=== PATIENT | female | born 1955 | race Caucasian/White ===

== ENCOUNTER 2017-02-20 07:38 | Day surgery (SDC) | payer OTHER ==
[~2017-02-20 07:38] MED LIST: Lactated Ringers 1,000 ML IV SCH; Lidocaine 2% 5 ML SDV ONE; Midazolam 1 MG/ML 2 ML SDV ONE; Propofol 200 MG/20 ML SDV ONE; Sodium Chloride 0.9% 10 ML Syringe FLUSH PRN; Sodium Chloride 0.9% 2.5 ML Syringe FLUSH PRN; fentaNYL 100 MCG/2 ML SDV ONE
[2017-02-20] MEDS ORDERED: ceFAZolin 1 GM Vial ONE (08:01)
[2017-02-20] MEDS ORDERED: Sodium Chloride 0.9% 0 ML ONE (08:01)
--- NOTE | 2017-02-20 08:42 | PCM.PREANE ---
Preanesthetic Assessment - Anesthesia/Transfusion/Family Hx Anesthesia History: Prior Anesthesia Without Reaction Family History of Anesthesia Reaction: No Transfusion History: No Prior Transfusion(s) - Review of Systems General: No Symptoms Pulmonary: No Symptoms Cardiovascular: No Symptoms Gastrointestinal: No symptoms Neurological: No Symptoms Other: Reports: None - Physical Assessment NPO Status Date: 02/19/17 O2 Sat by Pulse Oximetry: 97 Respiratory Rate: 16 Vital Signs: Last Vital Signs Temp 36.3 C 02/20/17 07:53 Pulse 69 02/20/17 07:53 Resp 16 02/20/17 07:53 BP 136/57 L 02/20/17 07:53 Pulse Ox 97 02/20/17 07:53 Height: 1.68 m Weight: 61.235 kg ASA Class: 1 Mental Status: Alert & Oriented x3 Airway Class: Mallampati = 1 Dentition: Reports: Normal Dentition ROM/Head Extension: Full Lungs: Clear to auscultation, Normal respiratory effort Cardiovascular: Regular Rate - Allergies Allergies/Adverse Reactions: Allergies Allergy/AdvReac Type Severity Reaction Status Date / Time No Known Allergies Allergy Verified 02/17/17 14:29 - Anesthesia Plan Pre-Op Medication Ordered: None - Acknowledgements Anesthesia Type Planned: MAC Pt an Appropriate Candidate for the Planned Anesthesia: Yes Alternatives and Risks of Anesthesia Discussed w Pt/Guardian: Yes Pt/Guardian Understands and Agrees with Anesthesia Plan: Yes PreAnesthesia Questionnaire HEENT History: Reports: Other (see below) Other HEENT History: wears contacts Genitourinary History: Reports: None [employer] History: Oncologic (Cancer) History: Reports: Breast - Past Surgical History Head Surgeries/Procedures: Reports: None GI Surgical History: Reports: Hernia, inguinal, Other (see below) Other GI Surgeries/Procedures: hx of pancreatic surgery for excision of benign tumors , hx inguinal hernia repair Female Surgical History: Reports: Breast biopsy, Other (see below) Other Female Surgeries/Procedures: breast lumpectomy for breast cancer - SUBSTANCE USE Smoking Status *Q: Current Every Day Smoker Tobacco Use Within Last Twelve Months: Cigarettes Recreational Drug Use History: No - HOME MEDS Home Medications: Home Meds . [No Known Home Meds] 02/17/17 [History] - CURRENT (IN HOUSE) MEDS Current Meds: Current Medications Lactated Ringer's (Ringers, Lactated) 1,000 mls @ 125 mls/hr IV ASDIRECTED ALEX Last Admin: 02/20/17 07:54 Dose: 125 mls/hr Sodium Chloride (Saline Flush) 10 ml FLUSH ASDIRECTED PRN PRN Reason: Keep Vein Open Sodium Chloride (Saline Flush) 2.5 ml FLUSH ASDIRECTED PRN PRN Reason: Keep Vein Open Discontinued Medications Cefazolin Sodium (Ancef) Confirm Administered Dose 2 gm .ROUTE .STK-MED ONE Stop: 02/20/17 08:02 Fentanyl (Sublimaze) Confirm Administered Dose 100 mcg .ROUTE .STK-MED ONE Stop: 02/20/17 07:08 Sodium Chloride (Normal Saline) Confirm Administered Dose 20 mls @ as directed .ROUTE .STK-MED ONE Stop: 02/20/17 08:02 Lidocaine (Xylocaine-Mpf 2%) Confirm Administered Dose 5 ml .ROUTE .STK-MED ONE Stop: 02/20/17 07:08 Midazolam HCl (Versed 1 Mg/Ml) Confirm Administered Dose 2 mg .ROUTE .STK-MED ONE Stop: 02/20/17 07:08 Propofol (Diprivan 20 Ml) Confirm Administered Dose 400 mg .ROUTE .STK-MED ONE Stop: 02/20/17 07:08
[2017-02-20] MEDS ORDERED: Glycopyrrolate 0.2 MG/ML SDV ONE (08:46)
[2017-02-20] MEDS ORDERED: Propofol 200 MG/20 ML SDV ONE (09:03)
--- NOTE | 2017-02-20 09:45 | PCM48HPAN ---
Post Anesthesia Note - EVALUATION WITHIN 48HRS OF ANESTHETIC Vital Signs in Normal Range: Yes Patient Participated in Evaluation: Yes Respiratory Function Stable: Yes Airway Patent: Yes Cardiovascular Function Stable: Yes Hydration Status Stable: Yes Pain Control Satisfactory: Yes Nausea and Vomiting Control Satisfactory: Yes Mental Status Recovered: Yes
--- NOTE | 2017-02-20 09:45 | PCM.POSTAN ---
POST ANESTHESIA ASSESSMENT - MENTAL STATUS Mental Status: alert, oriented - RESPIRATORY Respiratory Status: respiratory rate WNL, airway patent - CARDIOVASCULAR CV Status: pulse rate WNL, blood pressure stable - GASTROINTESTINAL GI Status: no symptoms - POST OP HYDRATION Hydration Status: adequate & stable
--- NOTE | 2017-02-20 09:46 | PCM.OPNOTE ---
- General Post-Op/Procedure Note Date of Surgery/Procedure: 02/20/17 Operative Procedure(s): Screening colonoscopy Findings: 1mm sessile polyp in sigmoid colon Pre Op Diagnosis: Colonoscopy Post-Op Diagnosis: same Anesthesia Technique: MAC Primary Surgeon: Lulu Krause Condition: Good Free Text/Narrative:: Intake & Output 02/19/17 02/20/17 02/20/17 22:59 06:59 14:59 Intake Total 1000 Balance 1000
[2017-02-20 10:03] VITALS: BP 112/63
--- NOTE | 2017-02-20 11:44 | OR ---
SURGEON: VIMAL SNOW MD DATE OF PROCEDURE: 02/20/2017 PREOPERATIVE DIAGNOSIS: Screening colonoscopy. POSTOPERATIVE DIAGNOSIS: Sigmoid colon polyp. PROCEDURE PERFORMED: Screening colonoscopy. INSTRUMENT USED: Olympus colonoscope. ANESTHESIA: MAC. EXTENT OF EXAM: To the cecum. PREPARATION: Good. LIMITATIONS: None. INDICATIONS: The patient is a 61-year-old female, who presents for screening colonoscopy. The patient and I discussed the procedure as well as expected perioperative course. We discussed the risks, including bleeding, infection, or damage to surrounding structures. The patient verbalized understanding and wishes to proceed. PROCEDURE IN DETAIL: The patient was brought into the endoscopy suite and placed in the left lateral decubitus position. A time-out was completed verifying the patient's name, age, date of , allergies, and procedure to be performed. Monitored anesthesia care was induced and oxygen was provided via nasal cannula throughout the procedure. After adequate sedation was achieved, a digital rectal exam was performed. This examination was within normal limits. A well lubricated colonoscope was then inserted in the rectum and advanced under direct visualization to the cecum. The cecum was identified by both visual and anatomic landmarks. A photograph was taken of the cecal cap, however, I was unable to retroflex the scope within the cecum due to significant looping proximally. The scope was then straightened out and fully withdrawn while examining the color, texture, anatomy, and integrity of mucosa from the cecum to the anal canal. The findings were consistent with a sigmoid colon polyp that was approximately 1-2 mm in size and sessile. The patient also had evidence of mild diverticulosis. The polyp was removed using a cold biopsy forceps. The scope was then brought into the rectum and retroflexed to allow visualization of the anal canal opening. This appeared normal and a photograph was taken. The scope was straightened out and removed from the patient. The patient tolerated the procedure well and was transferred to the recovery room in stable condition. ENDOSCOPIC DIAGNOSIS: Diverticulosis, sigmoid colon polyp. RECOMMENDATIONS: Follow up in clinic in 2 weeks. LUCI HOWARD /[id number]
== END 2017-02-20 10:03 | disposition home or self-care (01) ==
LOC: MW.SDS 07:38
PROVIDERS: ATTEND Surgery
PROC: 0DBN8ZZ Excision of Sigmoid Colon, Via Natural or Artificial Opening Endoscopic (ICD-10-PCS; principal; 2017-02-20)
DX: Z12.11 Encounter for screening for malignant neoplasm of colon (principal); D12.5 Benign neoplasm of sigmoid colon; K57.30 Diverticulosis of large intestine without perforation or abscess without bleeding; F17.210 Nicotine dependence, cigarettes, uncomplicated; Z85.3 Personal history of malignant neoplasm of breast; Z98.890 Other specified postprocedural states
CPT/HCPCS: 45380; 88305; J2250; J3010; J7120; J0690; J2704